=== PATIENT | male | born 1980 | race Caucasian/White ===

== ENCOUNTER 2016-06-26 06:55 | Day surgery (SDC) | payer OTHER ==
[~2016-06-26] VITALS: Ht 177.8 cm; Wt 96.2 kg
--- NOTE | ~2016-06-26 | OR ---
PATIENT'S NAME: NAHUM ENGLISH [facility] AGE: 36 Y [address] ROOM: [address] [address] LOCATION: [facility] ADMIT DATE: 06/26/2016 OR/Procedure Report DISCHARGE DATE: 06/26/2016 FAMILY PHYSICIAN: PHYSICIAN, NO ATTENDING PHYSICIAN: Colby Powers SURGEON: Colby Powers MD [employer]: Iggy Solis CST/HEALTH PROGRAM DIRECTOR. DATE OF PROCEDURE: 06/26/2016 PREOPERATIVE DIAGNOSIS: Bilateral hip avascular necrosis. POSTOPERATIVE DIAGNOSIS: Bilateral hip avascular necrosis. PROCEDURE PERFORMED: Bilateral hip core decompression. ANESTHESIA: General endotracheal anesthesia plus subcutaneous local anesthesia. DRAINS: None. SPECIMEN: None. COMPLICATIONS: None. IMPLANTS: None. INDICATION FOR PROCEDURE: Mr. English is a 36-year-old male, presenting with bilateral hip avascular necrosis (diagnosis confirmed by MRI). He has severe symptoms on the right and moderate progressive symptoms on the left. He emphasizes (in the preoperative holding area) that his left hip symptoms have been becoming more severe. He has been on crutches. There is no plain radiographic evidence of femoral head collapse. Risks, benefits, limitations, and alternatives to core decompression have been thoroughly reviewed with the patient and his spouse. We have specifically discussed the potential for infection, neurovascular complications, progression of his disease, and the potential need for salvage with hip arthroplasty. He wishes to do everything within reason to attempt to salvage his hips. We have also discussed the potential for fracture (via a stress riser) effect through the entrance drill hole. We have discussed the need for restricted weightbearing for 2 months postoperatively. Informed consent granted. DESCRIPTION OF PROCEDURE: The patient positioned supine on the fracture table. General endotracheal anesthesia was administered. Attention was first PATIENT'S NAME: NAHUM ENGLISH [facility] AGE: 36 Y [address] ROOM: [address] [address] LOCATION: [facility] ADMIT DATE: 06/26/2016 OR/Procedure Report DISCHARGE DATE: 06/26/2016 FAMILY PHYSICIAN: PHYSICIAN, NO ATTENDING PHYSICIAN: Colby Powers focused on the right hip. The lateral aspect of the right hip and thigh were prepped and draped with vigilant sterile technique. A 5 cm longitudinal incision was made directly laterally at the level of the lesser trochanter. The iliotibial band was sharply divided in line with the overlying skin incision. Subcutaneous tissues were infiltrated with Marcaine with epinephrine. A 3.2 mm pilot control operator helper hole was made at the lateral femoral cortex into position that would allow straight trajectory to the anterolateral and superior aspects of the femoral head. A guidewire was inserted through this drill hole into the central aspect of the defect and confirmed to be optimally positioned under fluoroscopic guidance. A 6.5 mm cannulated drill was advanced over the guidewire to the appropriate depth. It should be noted that extremely sclerotic bone was encountered at the rim of the defect. The guidewire was subsequently redirected slightly posterior to its initial position for a second entrance point into the defect. The guidewire was removed. The incision was thoroughly irrigated with sterile saline containing bacitracin. The fascia was closed with multiple simple interrupted #1 Vicryl sutures. Subcutaneous tissues were thoroughly re- irrigated and reapproximated with simple deep interrupted 2-0 Vicryl followed by a running subcuticular 3-0 Monocryl suture, followed by Dermabond, followed by Steri-Strips with benzoin and an occlusive Mepilex dressing. Attention was next focused on the left leg. The lateral aspect of the left hip and thigh were prepped and draped with vigilant sterile technique. A 5 cm longitudinal incision was made directly laterally at the level of the lesser trochanter. Sharp dissection proceeded through the iliotibial band. A 3.2 mm pilot control operator helper hole was made in the lateral femoral cortex, through which the guidewire was inserted into the central aspect of the defect. A 6.5 mm cannulated drill bit was utilized to penetrate the defect. Once again, extremely sclerotic bone was encountered at the periphery of the defect. Care was taken to avoid penetration of the subchondral cortex of the femoral head in both hips. The guidewire was subsequently advanced more posteriorly than the initial trajectory to perforate the defect at a second point. It should be noted that there was no fluoroscopic evidence of femoral head collapse in either hip. The left hip incision was thoroughly irrigated with sterile saline containing bacitracin and closed in an identical fashion as the right hip. It should be noted that the operative hip was placed into a leg camacho with no traction for each case with contralateral hip gently flexed and abducted at the hip and placed into a stirrup-type leg camacho. The left hip was dressed in an identical fashion as the right. PATIENT'S NAME: NAHUM ENGLISH [facility] AGE: 36 Y [address] ROOM: [address] [place] [id number] LOCATION: [facility] ADMIT DATE: 06/26/2016 OR/Procedure Report DISCHARGE DATE: 06/26/2016 FAMILY PHYSICIAN: PHYSICIAN, NO ATTENDING PHYSICIAN: Colby Powers The patient was extubated and transported to the Postanesthesia Care Unit in stable, comfortable condition. MD ARLIN RAMÍREZ/taylor /[id number] d: 06/26/162017 t: 07/05/16 2222, OPERATIVE SUMMARY
[~2016-06-26 06:55] MED LIST: NORCO 5-325 TA1 EACH PO; THERA-VITE W/ B1 TAB PO; ZYRTEC10 MG PO
[2016-06-26] MEDS ORDERED: PRILOSEC20 MG PO (08:18)
== END 2016-06-26 14:15 | disposition disaster alternative care site (69) ==
LOC: GSDC 06:55 → G3N 06:55 → GSDC 14:15
PROC: 0SQB0ZZ Repair Left Hip Joint, Open Approach (ICD-10-PCS; principal; 2016-06-26)
PROC: 0SQ90ZZ Repair Right Hip Joint, Open Approach (ICD-10-PCS; 2016-06-26)
DX: M87.851 Other osteonecrosis, right femur (principal); M87.852 Other osteonecrosis, left femur; K21.9 Gastro-esophageal reflux disease without esophagitis; Z87.891 Personal history of nicotine dependence
CPT/HCPCS: J0690; J1100; J1885; J2250; J2405; J2550; J3010; J7120